=== PATIENT | female | born 1970 | race African-American/Black ===

== ENCOUNTER 2017-02-23 05:52 | Day surgery (SDC) | payer OTHER ==
[~2017-02-23 05:52] MED LIST: Buffered Lidocaine 0.9% SYRIN* 5 ML/SYR SYRINGE INTRADERM ONE
[2017-02-23] MEDS ORDERED: Famotidine IV* 10 MG/ML 2 ML (20 mg) IV ONE (06:00)
[2017-02-23] MEDS ORDERED: Dexamethasone IV* 4 MG/ML 1 ML (4 MG) IV SLOW PU ONE (06:00)
[2017-02-23] MEDS ORDERED: Dexamethasone IV* 4 MG/ML 1 ML (4 MG) ONE (06:17)
[2017-02-23] MEDS ORDERED: Buffered Lidocaine 0.9% SYRIN* 5 ML/SYR SYRINGE ONE (06:18)
[2017-02-23] MEDS ORDERED: Famotidine IV* 10 MG/ML 2 ML (20 mg) ONE (06:18)
[2017-02-23] MEDS ORDERED: ceFAZolin 2 GM PREMIX (*) 2 GM/50 ML BAG IVPB ONE (06:18)
[2017-02-23] MEDS ORDERED: Lidocaine 2% PF* 10 ML AMP ONE (07:04)
[2017-02-23] MEDS ORDERED: Bupivacaine 0.5% SDV PF* 30 ML VIAL ONE (07:04)
[2017-02-23] MEDS ORDERED: fentaNYL* 50 MCG/ML 2 ML VIAL (100 MCG VIAL) ONE (07:20)
[2017-02-23] MEDS ORDERED: Midazolam* 1 MG/ML 2 ML VIAL (2 MG) ONE ×2 (07:20→07:49)
[2017-02-23] MEDS ORDERED: Propofol* 10 MG/ML 20 ML BTL IV PUSH ONE (07:48)
[2017-02-23] MEDS ORDERED: Lidocaine 2% PF * 5 ML VIAL ONE (07:48)
[2017-02-23] MEDS ORDERED: Ondansetron INJ* 2 MG/ML VIAL ONE (07:58)
[2017-02-23] MEDS ORDERED: HYDROcodone/ACETAMIN 5-325 MG* 1 TAB PO PRN (08:16)
[2017-02-23] MEDS ORDERED: Ketorolac INJ* 30 MG/ML 1 ML VIAL IV PRN (08:16)
[2017-02-23] MEDS ORDERED: oxyCODONE TAB* 5 MG TAB PO PRN (08:16)
[2017-02-23] MEDS ORDERED: fentaNYL* 50 MCG/ML 2 ML VIAL (100 MCG VIAL) IV PRN (08:16)
[2017-02-23] MEDS ORDERED: PROCHLORPERAZINE INJ 5 MG/ML 2 ML VIAL IV PRN (08:16)
[2017-02-23 09:11] VITALS: BP 133/81
--- NOTE | 2017-02-23 13:11 | OP ---
OPERATIVE REPORT: DATE OF OPERATION: 02/23/17 DATE OF : 72 SURGEON: Sina Broderick MD CLINICAL ASST: ASHLEE Mcmahan ANESTHESIOLOGIST: Vikas Tirnh MD ANESTHESIA: MAC with local anesthetic. PRE-OP DIAGNOSIS: Left fifth toe mass, with overlying skin lesion. POST-OP DIAGNOSIS: Left fifth toe middle phalanx osteophyte with overlying skin lesion. OPERATIVE PROCEDURE: 1. Saucerization of bone from the middle phalanx of the left fifth toe. 2. Excision of benign lesion including margins with a diameter of 1.5 cm. ESTIMATED BLOOD LOSS: Minimal. TOURNIQUET TIME: Less than 30 minutes with an ankle Esmarch tourniquet. SPECIMEN: Left fifth toe skin lesion to pathology. INDICATIONS: Aicha is a woman who has had persistent pain and limitations with shoe wear and walking because of a left fifth toe skin lesion with underlying mass. She has tried various non-operative modalities including shoe wear modifications and activity modifications with minimal benefit. We did obtain x-rays and an MRI which did not show any evidence of underlying infection. Because of this, we discussed continued nonoperative versus operative measures. We carefully reviewed the nature and risks of surgery in the office as well as in the preoperative holding area. Our discussions regarding the risks of surgery included, but were not limited to infection, wound problems, nerve injury, neuroma, RSD, recurrence, failure to remove the entire mass, persistent pain and even a remote chance of catastrophic complication including loss of the toe or foot. All questions are answered and she requested to proceed with surgery. DESCRIPTION OF PROCEDURE: The patient was seen in the preoperative holding unit and informed written consent was obtained. The appropriate extremity was marked. The patient was then brought to the operating room and carefully positioned on the operating room table. Anesthesia was induced. All bony prominences were padded with great care. A chlorhexidine based pre-scrub was performed followed by a standard prep and drape with ChloraPrep. A surgical safety pause was then conducted in which we confirmed the appropriate patient, extremity, planned procedure, availability of equipment, indication, and administration of prophylactic antibiotics, and DVT prophylaxis in the form of a compression boot on the nonsurgical extremity. We began by performing a left fifth toe digital block with 0.5% plain Marcaine. We then performed an Esmarch exsanguination of the foot and placed an ankle Esmarch tourniquet. I then made an elliptical excision around the chronic skin lesion and excised this. This was sent to pathology. Then careful dissection was performed to see if there was in fact a ganglion cyst coming off the joint and none was seen. I dissected down to the level of the bone and joint and there was a prominent lateral osteophyte coming off the proximal aspect of the middle phalanx. It had a prominent sharp edge. A rongeur was used to remove this osteophyte and then a rasp was used to give a smooth contour to the middle phalanx. After this, I flapped the skin back over the bone and there was no longer the prominence that had been underlying the skin. The wound was copiously irrigated at this point. We then closed the wound in a layered fashion utilizing 3-0 Monocryl and 3-0 nylon. The Esmarch tourniquet was taken down and the toe was pink, well perfused and had excellent capillary refill. She was awakened from anesthesia without any difficulties and transferred to the recovery room in stable condition. Complications: none. [place] and sponge counts were correct at the end of the case. ATTESTATION: I attest that I was present, scrubbed and performed the entire procedure myself. POSTOPERATIVE PLAN: Aicha will remain in the postop shoe and try to limit her activity for the next couple of weeks while the skin heals. Once I see her in around 2 weeks' time, if the incision looks good, we will remove the sutures and let her begin weightbearing as tolerated. We will follow up on the pathology specimen. [id number]/[facility] [place] #: [id number] CALEB
== END 2017-02-23 09:12 | disposition home or self-care (01) ==
LOC: OR 05:52
PROVIDERS: ATTEND Orthopaedic Surgery
DX: B07.0 Plantar wart (principal); L98.9 Disorder of the skin and subcutaneous tissue, unspecified; M25.772 Osteophyte, left ankle; M67.472 Ganglion, left ankle and foot; Z87.891 Personal history of nicotine dependence; I10 Essential (primary) hypertension; J45.909 Unspecified asthma, uncomplicated
CPT/HCPCS: 88305; J0690; J1100; J2001; J2250; J2405; J2704; J3010

== ENCOUNTER 2018-06-18 20:19 | Emergency (ER) | payer BC ==
[2018-06-18 20:25] VITALS: BP 145/84
--- OUTSIDE RECORDS SUMMARY | 2018-06-18 20:34 | XMS REPORT | Continuity of Care Document ---
:1970 External Reference #:[id number] Author Name Essie Triana Care Team Providers Name Role Phone Hilary Villeda M.D. Primary Care Physician Unavailable Payers Date Identification Numbers Payment Provider Subscriber Expires: 2018 Policy Number: [id number] Sonny Marino Group Number: [id number] [address] PayID: [id number] [place] [address] Effective: 2018 Policy Number: [id number] LANDRY Yaya Marino Group Number: [id number] [address] [address] PayID: [id number] [place] [id number] Advance Directives Type Date Description Status Comment Other Directive 03/27/2018 Health Care Proxy Current and Verified Problems Date Description Provider Status Onset: 11/09/2016 Mild intermittent asthma Ashwin Porter M.D.,FACP Active Onset: 11/09/2016 Essential hypertension Ashwin Porter M.D.,FACP Active Onset: 01/11/2017 Light cigarette smoker (1-9 Ashwin Porter M.D.,FACP Active cigs/day) Onset: 01/12/2017 H/O: hysterectomy Ashwin Porter M.D.,FACP Active Onset: 02/23/2017 Disorder of skin and/or Sina Broderick MD Active subcutaneous tissue Onset: 02/23/2017 Enthesopathy of ankle AND/OR Sina Broderick MD Active tarsus Onset: 02/06/2017 Ganglion/synovial cyst - Sina Broderick MD Active ankle/foot Family History Date Family Member(s) Observation Comments Father Hypertension Mother Osteoarthritis Siblings 3 First Brother Asthma First Sister Hypertension Second Sister Hypertension Social History Type Date Description Comments Sex Unknown Marital Status Single Lives With Alone Occupation Currently Working [employer] Tobacco Use Start: Unknown Patient is a current cigarette smoker, smokes every day Tobacco Use Start: Unknown Currently smokes 1-5 Cigarettes Daily ETOH Use 11/09/2016 Denies alcohol use Tobacco Use Reviewed: 01/11/17 Light tobacco smoker (10 or fewer cigarettes/day) Recreational Drug Use Denies Drug Use Recreational Drug Use Formerly used Marijuana sporadically Smoking Status Reviewed: 05/29/18 Light tobacco smoker (10 or fewer cigarettes/day) UNKNOWN Incarcerated for 4 years Allergies, Adverse Reactions, Alerts Description No Known Drug Allergies Medications Medication Date Status Form Strength Qnty SIG Indications Ordering Provider Gabapentin 05/29/ Active Capsules 300mg 60caps take 1-2 G47.00 2018 tablets by porsche Villeda at MD bedtime as needed for insomnia Carpal Tunnel 05/29/ Active Misc use on G56.01 Wrist 2018 right hand Jaxon Villedar/Allen CASTELLANOS /X-Large Chlorthalidone 11/09/ Active Tablets 25mg 90tabs 1 by mouth 2016 every day MD Ronal Fluconazole 03/15/ Hx Tablets 150mg 2tabs one by Ashwin 2017 - mouth july Tamra Porter, 03/27/ repeat in M.D.,FACP 2019 3 days as needed Oxycodone HCL 02/23/ Hx Tablets 5mg 10tabs 1 tab by Sina 2016 - mouth Davie, 03/27/ every 4-6 MD 2019 hours as needed Proventil HFA 11/09/ Hx Aerosol 108(90Base 6.700g 2 puffs J45.40 Ching De Paz 2016 - ) mcg/Act m four times Tamra Porter, 03/27/ a day as M.D.,FACP 2019 needed Zolpidem 04/13/ Hx Tablets 10mg 30tabs 1 tab po 780.52 Stevanovi Tartrate 2009 - qhs prn c, 11/09/ Michael 2017 Sudarshan Benzonatate 03/11/ Hx Capsules 100mg 30caps 1 tab po 465.9 Thananart 2009 - tid prn , Arianne, 11/09/ M.D. 2016 Singulair 03/11/ Hx Tablets 10mg 30tabs 1 po qd 493.00 Thananart 2008 - , Arianne, 11/09/ M.D. 2016 Proventil HFA 01/01/ Hx Aerosol 108(90Base 1month 2 puffs 493.00 Thananart 2008 - ) trimble qid prn , Arianne, .D. 2016 Medications Administered in Office Medication Date Status Form Strength Qnty SIG Indications Ordering Provider PPD Administered Injection Nurse Visit 7 [place] Immunizations CPT Code Status Date Vaccine Lot # [id number] Given 01/11/2017 Influenza Virus Vaccine, Quadrivalent, Split, [id number] Preservative Free [id number] Given 11/09/2016 Pneumonia Vaccine [id number] Given 01/01/2009 Influenza Virus 3Yrs & Over [id number] Vital Signs Date Vital Result Comment 05/29/2018 2:21pm Height 63 inches 5'3" Weight 209.38 lb Heart Rate 68 /min BP Systolic 113 mmHg BP Diastolic 79 mmHg Body Temperature 98.9 F O2 % BldC Oximetry 100 % BMI (Body Mass Index) 37.1 kg/m2 04/26/2018 8:43am Height 63 inches 5'3" Weight 201.50 lb Heart Rate 73 /min BP Systolic 109 mmHg BP Diastolic 73 mmHg Body Temperature 98.0 F O2 % BldC Oximetry 100 % BMI (Body Mass Index) 35.7 kg/m2 03/27/2018 4:16pm Height 63 inches 5'3" Weight 207.50 lb Heart Rate 80 /min BP Systolic 147 mmHg BP Diastolic 91 mmHg Body Temperature 98.6 F O2 % BldC Oximetry 99 % BMI (Body Mass Index) 36.8 kg/m2 02/27/2017 12:54pm Height 63 inches 5'3" Weight 201.00 lb BP Systolic 120 mmHg BP Diastolic 74 mmHg Respiratory Rate 18 /min Body Temperature 97.7 F Pain Level 9 BMI (Body Mass Index) 35.6 kg/m2 02/06/2017 3:33pm Height 63 inches 5'3" Weight 201.00 lb Heart Rate 83 /min BP Systolic 110 mmHg BP Diastolic 76 mmHg Respiratory Rate 16 /min BMI (Body Mass Index) 35.6 kg/m2 01/16/2017 3:00pm Height 63 inches 5'3" Weight 201.00 lb Heart Rate 82 /min Respiratory Rate 14 /min Body Temperature 99.1 F Pain Level 10 BMI (Body Mass Index) 35.6 kg/m2 01/11/2017 2:12pm Weight 208.00 lb Heart Rate 95 /min BP Systolic Sitting 120 mmHg BP Diastolic Sitting 84 mmHg Body Temperature 98.4 F O2 % BldC Oximetry 96 % 11/09/2016 2:20pm Height 63.50 inches 5'3.50" Weight 216.00 lb Heart Rate 81 /min BP Systolic Sitting 156 mmHg BP Diastolic Sitting 88 mmHg BP Systolic Recheck 146 mmHg BP Diastolic Recheck 88 mmHg Body Temperature 99.0 F O2 % BldC Oximetry 98 % BMI (Body Mass Index) 37.7 kg/m2 04/13/2009 8:59am Weight 201.00 lb Heart Rate 76 /min BP Systolic Sitting 112 mmHg BP Diastolic Sitting 80 mmHg 03/11/2009 8:42am Weight 204.00 lb Heart Rate 82 /min BP Systolic Sitting 114 mmHg BP Diastolic Sitting 70 mmHg Body Temperature 97.7 F 01/01/2009 1:34pm Height 63.75 inches 5'3.75" Weight 201.00 lb Heart Rate 70 /min BP Systolic Sitting 126 mmHg BP Diastolic Sitting 88 mmHg Body Temperature 97.5 F BMI (Body Mass Index) 34.8 kg/m2 Results Test Date Facility Test Result H/L Range Note Comp Metabolic Panel 05/29/2018 [facility] Sodium 138 mmol/L N 135-145 [address] [place] [address] [phone] Potassium 4.3 mmol/L N 3.5-5.0 Chloride 107 mmol/L N 101-111 Co2 Carbon Dioxide 27 mmol/L N 22-32 Anion Gap 4 mmol/L N 2-11 Glucose 91 mg/dL N 70-100 Blood Urea Nitrogen 10 mg/dL N 6-24 Creatinine 0.82 mg/dL N 0.51-0.95 BUN/Creatinine Ratio 12.2 N 8-20 Calcium 8.6 mg/dL N 8.6-10.3 Total Protein 6.3 g/dL Low 6.4-8.9 Albumin 3.6 g/dL N 3.2-5.2 Globulin 2.7 g/dL N 2-4 Albumin/Globulin Ratio 1.3 N 1-3 Total Bilirubin 0.50 mg/dL N 0.2-1.0 Alkaline Phosphatase 53 U/L N 34-104 Alt 11 U/L N 7-52 Ast 15 U/L N 13-39 Egfr Non- 75.1 >60 Egfr 90.8 >60 1 CBC Auto Diff 05/29/2018 [facility] White Blood 6.3 10^3/uL N 3.5-10.[address] [place] [address] [phone] Red Blood Count 4.39 10^6/uL N 3.70-4.87 Hemoglobin 13.1 g/dL N 12.0-16.0 Hematocrit 39 % N 33-41 Mean Corpuscular Volume 88 fL N 80-97 Mean Corpuscular Hemoglobin 30 pg N 27-31 Mean Corpuscular HGB Conc 34 g/dL N 31-36 Red Cell Distribution Width 13 % N 10.5-15 Platelet Count 205 10^3/uL N 150-450 Mean Platelet Volume 9.1 fL N 7.4-10.4 Abs Neutrophils 3.8 10^3/uL N 1.5-7.7 Abs Lymphocytes 2.0 10^3/uL N 1.0-4.8 Abs Monocytes 0.4 10^3/uL N 0-0.8 Abs Eosinophils 0.1 10^3/uL N 0-0.6 Abs Basophils 0 10^3/uL N 0-0.2 Abs Nucleated RBC 0 10^3/uL Granulocyte % 60.3 % Lymphocyte % 31.6 % Monocyte % 6.2 % Eosinophil % 1.3 % Basophil % 0.6 % Nucleated Red Blood Cells % 0 Lipid Profile 05/29/2018 [facility] Triglycerides 54 mg/dL 2 (Trig/Chol/HDL) [address] [place] [address] [phone] Cholesterol 172 mg/dL 3 HDL Cholesterol 43.2 mg/dL 4 LDL Cholesterol 118 mg/dL 5 Laboratory test 02/23/2017 [facility] Surgical SEE RESULT [address] [place] [address] [phone] CBC Auto Diff 12/21/2016 [facility] White Blood 8.4 10^3/uL N 3.5-[address] Count .8 [place] [address] [phone] Red Blood Count 5.07 10^6/uL N 4.0-5.4 Hemoglobin 14.9 g/dL N 12.0-16.0 Hematocrit 44 % N 35-47 Mean Corpuscular Volume 86 fL N 80-97 Mean Corpuscular Hemoglobin 29 pg N 27-31 Mean Corpuscular HGB Conc 34 g/dL N 31-36 Red Cell Distribution Width 13 % N 10.5-15 Platelet Count 225 10^3/uL N 150-450 Mean Platelet Volume 10 um3 N 7.4-10.4 Abs Neutrophils 5.2 10^3/uL N 1.5-7.7 Abs Lymphocytes 2.6 10^3/uL N 1.0-4.8 Abs Monocytes 0.4 10^3/uL N 0-0.8 Abs Eosinophils 0.1 10^3/uL N 0-0.6 Abs Basophils 0 10^3/uL N 0-0.2 Abs Nucleated RBC 0.01 10^3/uL N Granulocyte % 61.8 % N 38-83 Lymphocyte % 31.0 % N 25-47 Monocyte % 5.1 % N 1-9 Eosinophil % 1.7 % N 0-6 Basophil % 0.4 % N 0-2 Nucleated Red Blood Cells % 0.1 N Lipid Profile 12/21/2016 [facility] Triglycerides 65 mg/dL N 7 (Trig/Chol/HDL) [address] [place] [address] [phone] Cholesterol 190 mg/dL N 8 HDL Cholesterol 45.5 mg/dL N 9 LDL Cholesterol 132 mg/dL N 10 Basic Metabolic Panel 12/21/2016 [facility] Sodium 134 mmol/L N 133-145 [address] [place] [address] [phone] Chloride 99 mmol/L Low 101-111 Co2 Carbon Dioxide 29 mmol/L N 22-32 Glucose 85 mg/dL N 70-100 Blood Urea Nitrogen 12 mg/dL N 6-24 Creatinine 0.83 mg/dL N 0.51-0.95 BUN/Creatinine Ratio 14.5 N 8-20 Calcium 9.2 mg/dL N 8.6-10.3 Egfr Non- 74.3 N >60 Egfr 95.6 N >60 11 Potassium TNP mmol/L N 3.5-5.0 12 Anion Gap 6 mmol/L N 2-11 Laboratory test 12/21/2016 [facility] Potassium 3.7 mmol/L N 3.5-5.[address] [place] [address] [phone] Ast Redraw 16 U/L N 13-39 Laboratory test 01/01/2009 [facility] Ferritin < 10 NG/ML Low 11.0-[address] [place] [address] [phone] Iron & Iron 01/01/2009 [facility] Iron Total 17 g/dL Low 28- 170 Binding Capacity [address] [place] [address] [phone] Unsaturated Iron Binding 507 g/dL Total Iron Binding Capacity 524 g/dL High 250-450 % Iron Saturation 3 % Low 15-55 Vitamin B12 And 01/01/2009 [facility] Vitamin B12 320 pg/mL 180-914 Folate Serum [address] [place] [address] [phone] Folic Acid 9.3 NG/ML 2-16 CBC With 01/01/2009 [facility] White Blood 6.8 CUMM 4.8-10.8 Electronic Diff [address] [place] [address] [phone] Red Cell Count 4.91 CUMM 4.2-5.4 Hemoglobin 10.7 g/dL Low 12.0-16.0 Hematocrit 35 % 35-47 Mean Corpuscular Volume 70 um3 Low 79-97 13 Mean Corpuscular Hemoglob 22 pg Low 27-31 Mean Corpuscular HGB Cone 31 g/dL Low 32-36 Redcell Distribution WDTH 25 % High 10.5-15 Platelet Count 282 CUMM 150-450 Mean Platelet Volume 9.4 um3 7.4-10.4 Gran % 52.6 % 38-83 Lymph % 37.7 % 25-47 Mononuclear % 5.7 % 1-9 Eosinophil % 3.1 % 0-6 Basophil % 0.9 % 0-2 Abs Lymphs 2.5 1.0-4.8 Abs Mononuclear 0.4 0-0.8 Absolute Neutrophil Count 3.6 1.5-7.7 Abs Eosinophils 0.2 0-0.6 Abs Basophils 0.1 0-0.2 14 1 Because ethnic data is not always readily available, this report includes an eGFR for both -Americans and non- Americans. The National Kidney Disease Education Program (NKDEP) does not endorse the use of the MDRD equation for patients that are not between the ages of 18 and 70, are , have extremes of body size, muscle mass, or nutritional status, or are non- or non-. According to the National Kidney Foundation, irrespective of diagnosis, the stage of the disease is based on the level of kidney function: Stage Description GFR(mL/min/1.73 m(2)) 1 Kidney damage with normal or decreased GFR 90 2 Kidney damage with mild decrease in GFR 60-89 3 Moderate decrease in GFR 30-59 4 Severe decrease in GFR 15-29 5 Kidney failure <15 (or dialysis) 2 Desirable: <150 Borderline High: 150-199 High: 200-499 Very High: >500 3 Desirable: <200 Borderline High: 200-239 High: >239 4 Low: <40 Desirable: 40-60 High: >60 5 Desirable: <100 Near Optimal: 100-129 Borderline High: 130-159 High: 160-189 Very High: >189 6 SEE RESULT BELOW Name: AICHA MARINO : [address]: Sina Broderick MD Acct: [id number] Unit: [id number] AGE: 46 Location: OR Re02/23/17 SEX: F Status: PRIMO TALLEY SPEC: [id number] BEHZAD: 02/23/17- SUBM DR: Sina Broderick MD REQ: [id number] RECD: 02/23/17100 STATUS: SOUT _ ORDERED: LEVEL 4 FINAL DIAGNOSIS Skin, left fifth toe, excision: -- Verruca plantaris. PRE-OPERATIVE DIAGNOSIS Ganglion left ankle and foot GROSS DESCRIPTION The specimen is received in formalin labeled, Skin Lesion Left Fifth Toe, and consists of a 1.5 x 0.9 cm jones-syed scaly unoriented volar skin ellipse excised to a depth of 0.6 cm with a central 0.2 x 0.1 cm defect. The specimen is inked, serially sectioned and entirely submitted in one cassette. Signed (signature on file) Gil Rasmussen MD [id number] END OF REPORT * ML=Testing performed at Main Lab DEPARTMENT OF PATHOLOGY, [address] [place] [address] Gil Rasmussen M.D. Director [facility] # [id number] 7 Desirable <150 Borderline high 150-199 High 200-499 Very High >500 8 Desirable <200 Borderline high 200-239 High >239 9 Low <40 Desirable: 40-60 High: >60 10 Desirable: <100 mg/dL Near Optimal: 100-129 mg/dL Borderline High: 130-159 mg/dL High: 160-189 mg/dL Very High: >189 mg/dL 11 Because ethnic data is not always readily available, this report includes an eGFR for both -Americans and non- Americans. The National Kidney Disease Education Program (NKDEP) does not endorse the use of the MDRD equation for patients that are not between the ages of 18 and 70, are , have extremes of body size, muscle mass, or nutritional status, or are non- or non-. According to the National Kidney Foundation, irrespective of diagnosis, the stage of the disease is based on the level of kidney function: Stage Description GFR(mL/min/1.73 m(2)) 1 Kidney damage with normal or decreased GFR 90 2 Kidney damage with mild decrease in GFR 60-89 3 Moderate decrease in GFR 30-59 4 Severe decrease in GFR 15-29 5 Kidney failure <15 (or dialysis) 12 Unable to report test result due to hemolysis. 13 CONSISTENT WITH PREVIOUS RESULTS 14 1+ Microcytosis 3+ Anisocytosis Procedures Date Code Description Status 04/19/2018 [id number] Mammogram Completed 02/23/2017 54698 Partial Excision Phalanx Of Toe Completed 02/23/2017 07646 Partial Excision Phalanx Of Toe Completed 02/23/2017 40353 Excision Benign Lesion Incl Diameter 1.1 - 2.0 CM Completed Scalp,Neck,Hand 02/23/2017 73358 Excision Benign Lesion Incl Diameter 1.1 - 2.0 CM Completed Scalp,Neck,Hand 12/21/2016 [id number] Mammogram Completed Encounters Type Date Location Provider Dx Diagnosis Office Visit 04/26/2018 [facility] Internal Hilary Villeda MD I10 Essential ( primary) 8:40a Medicine - [address] Office Visit 03/27/2018 [facility] Internal Hilary Villeda MD L72.3 Sebaceous cyst 4:20p Medicine - [address] N63.11 Unspecified lump in the right breast, upper outer quadrant I10 Essential (primary) hypertension Office Visit 02/06/2017 Orthopedic Sina Broderick, M67.472 Ganglion, left 3:30p Services Of ankle and foot C.M.A. Office Visit 01/16/2017 Joe Broderick R22.42 Localized 3:00p Services Of swelling, mass and C.M.A. lump, left lower limb Office Visit 01/11/2017 [facility] Internal Ashwin Barboza I10 Essential 2:10p Medicine - [place] Sudarshan Porter,FACP (primary) Rd hypertension F17.200 Nicotine dependence, unspecified, uncomplicated L84 Corns and callosities Z23 Encounter for immunization Office Visit 11/09/2016 2:20p [facility] Internal Ashwin Barboza I10 Essential ( primary) Medicine - Clarence Porter.,FACP hypertension [address] J45.20 Mild intermittent asthma, uncomplicated Z12.31 Encntr screen mammogram for malignant neoplasm of breast Z23 Encounter for immunization Office Visit 04/13/2009 9:00a DO Not Use [employer] Supervisor Thananart, 780.52 Insomnia AT [place] Acuña M.D. Unspecified 493.00 Asthma Extrinsic Unspecified Office Visit 03/11/2009 8:40a DO Not Use [employer] Supervisor Thananart, 281.9 Anemia Deficiency AT [place] Acuña M.D. Unspec 493.00 Asthma Extrinsic Unspecified 465.9 URI Upper Respiratory Infections Acute Unspec Sites Office Visit 01/01/2009 1:20p DO Not Use [employer] Supervisor Thananart, 281.9 Anemia Deficiency AT [place] Acuña M.D. Unspec 789.09 Pain Abdominal Other Spec Site V88.01 Acquired Absence Of Both Cervix And Uterus 493.00 Asthma Extrinsic Unspecified V04.81 Need For Prophylactic Vaccination & Inoculation/Influenza Plan of Treatment Future Appointment(s):11/29/2018 9:20 am - Hilary Villeda MD at [facility] Internal Medicine [facility]
== END 2018-06-18 22:27 | disposition left against medical advice (07) ==
LOC: ED 20:19
DX: R07.9 Chest pain, unspecified (principal); W50.0XXA Accidental hit or strike by another person, initial encounter; Z53.21 Procedure and treatment not carried out due to patient leaving prior to being seen by health care provider
CPT/HCPCS: 93005

== ENCOUNTER 2018-06-22 19:51 | Emergency (ER) | payer BC ==
[2018-06-22 22:07] VITALS: BP 143/79
== END 2018-06-23 00:29 | disposition home or self-care (01) ==
LOC: ED 19:51
DX: R07.9 Chest pain, unspecified (principal); Z53.21 Procedure and treatment not carried out due to patient leaving prior to being seen by health care provider
CPT/HCPCS: 93005